=== PATIENT | female | born 2000 | race Caucasian/White ===

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

== ENCOUNTER 2019-03-22 12:22 | Emergency (ER) | payer MEDICAID, OTHER ==
[2019-03-22 12:59] VITALS: BP 108/61
--- NOTE | 2019-03-22 13:43 | UC ---
Back Pain HPI - HPI Summary HPI Summary: Pt presents with c/o left low back and posterior leg pain that began ~ 1 week ago after lifting and pulling a pt at work. 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 - History of Current Complaint Chief Complaint: UCBackPain Stated Complaint: BACK INJURY (WC) Time Seen by Provider: 03/22/19 13:35 Hx Obtained From: Patient Hx Last Menstrual Period: 03/17/19 ?: No Onset/Duration: Gradual Onset, Lasting Days, Still Present, Worse Since - onset Timing: Constant, Lasting Days Severity Initially: Mild Severity Currently: Moderate Pain Intensity: 5 Back Pain: Is Discrete @ - left low back and radiates down posterior leg Character: Dull, Aching, Burning Aggravating Factor(s): Movement Alleviating Factor(s): Nothing Associated Signs And Symptoms: Positive: Negative - Risk Factors AAA Risk Factors: Negative TAD Risk Factors: Negative Cauda Equina Risk Factors: Negative Epidural Abscess Risk Factors: Negative - Allergies/Home Medications Allergies/Adverse Reactions: Allergies Allergy/AdvReac Type Severity Reaction Status Date / Time sulfamethoxazole Allergy Rash Verified 03/22/19 12:53 [From Bactrim] trimethoprim [From Bactrim] Allergy Rash Verified 03/22/19 12:53 Home Medications: Home Medications Norelgest/Ethinyl Estr 150/35 [Xulane 150/35 PATCH] 1 each TRANSDERM WEEKLY [History Confirmed 03/22/19] PMH/Surg Hx/FS Hx/Imm Hx Previously Healthy: Yes - Surgical History Surgical History: Yes Surgery Procedure, Year, and Place: TONSILLECTOMY - Family History Known Family History: Positive: None - Social History Occupation: Employed Full-time Lives: With Family Alcohol Use: None Substance Use Type: None Smoking Status (MU): Never Smoked Tobacco Have You Smoked in the Last Year: No Household Exposure Type: Cigarettes - Immunization History Most Recent Influenza Vaccination: Not the 2015/2015 Season Vaccination Up to Date: Yes Review of Systems All Other Systems Reviewed And Are Negative: Yes Constitutional: Positive: Negative Skin: Positive: Negative Eyes: Positive: Negative ENT: Positive: Negative Respiratory: Positive: Negative Cardiovascular: Positive: Negative Gastrointestinal: Positive: Negative Genitourinary: Positive: Negative Motor: Positive: Negative Neurovascular: Positive: Negative Musculoskeletal: Positive: Myalgia Neurological: Positive: Negative Psychological: Positive: Negative Is Patient Immunocompromised?: No Physical Exam Triage Information Reviewed: Yes Appearance: Well-Appearing Vital Signs: Initial Vital Signs Temp 97.8 F 03/22/19 12:55 Pulse 62 03/22/19 12:55 Resp 14 03/22/19 12:55 BP 108/61 03/22/19 12:55 Pulse Ox 100 03/22/19 12:55 Vital Signs Reviewed: Yes Eye Exam: Normal ENT: Positive: Hearing grossly normal Dental Exam: Normal Neck exam: Normal Respiratory: Positive: No respiratory distress Musculoskeletal Exam: Normal Musculoskeletal: Positive: Strength Intact, ROM Intact, Other: - c/o radiating pain/discomfort left leg Neurological Exam: Normal Psychological Exam: Normal Skin Exam: Normal Back Pain Course/Dx - Differential Dx/Diagnosis Differential Diagnosis/HQI/PQRI: Herniated Disc, Strain Provider Diagnosis: Sciatica Discharge - Sign-Out/Discharge Documenting (check all that apply): Patient Departure All imaging exams completed and their final reports reviewed: No Studies - Discharge Plan Condition: Stable Disposition: HOME Prescriptions: predniSONE TAB* [Deltasone 20 MG TAB*] 20 mg PO DAILY #4 tab Patient Education Materials: Sciatica (ED), Lower Back Exercises (ED) Referrals: Tierra Carter [Primary Care Provider] - If Needed - Billing Disposition and Condition Condition: STABLE Disposition: Home - Attestation Statements Provider Attestation: Pt not seen by me. I was available for consult. EVELYN
== END 2019-03-22 13:49 | disposition home or self-care (01) ==
LOC: UCCORT 12:22
DX: M54.42 Lumbago with sciatica, left side (principal); Z88.2 Allergy status to sulfonamides
CPT/HCPCS: 99212; G0463

== ENCOUNTER 2019-10-27 16:55 | Emergency (ER) | payer OTHER ==
[2019-10-27 18:20] VITALS: BP 111/63
--- NOTE | 2019-10-27 18:34 | UC ---
General HPI - HPI Summary HPI Summary: Pt presents with c/o tender lump in left breast that began ~ 2 days ago. Pt is 26 & 1/2 weeks and has been "leaking" breast milk since early . Pt applied a warm pack earlier to day and noted that tender lump dissipated, and discharge from nipple was dark brown/green. Pt states skin was warm to touch and mildly erythematous but has no since resolved. - History of Current Complaint Chief Complaint: UCGeneralIllness Stated Complaint: LT BREAST COMPLAINT Time Seen by Provider: 10/27/19 18:27 Hx Obtained From: Patient Hx Last Menstrual Period: 03/17/19 Onset/Duration: Gradual Onset, Lasting Days, Resolved Timing: Constant Onset Severity: Moderate Current Severity: Mild Pain Intensity: 0 - Allergy/Home Medications Allergies/Adverse Reactions: Allergies Allergy/AdvReac Type Severity Reaction Status Date / Time sulfamethoxazole Allergy Rash Verified 10/27/19 18:20 [From Bactrim] trimethoprim [From Bactrim] Allergy Rash Verified 10/27/19 18:20 Home Medications: Home Medications Iron 18 mg PO BID 10/27/19 [History Confirmed 10/27/19] PMH/Surg Hx/FS Hx/Imm Hx Previously Healthy: Yes - Surgical History Surgical History: Yes Surgery Procedure, Year, and Place: TONSILLECTOMY - Family History Known Family History: Positive: Cardiac Disease - Social History Occupation: Employed Full-time Lives: With Family Alcohol Use: None Substance Use Type: None Smoking Status (MU): Never Smoked Tobacco Have You Smoked in the Last Year: No Household Exposure Type: Cigarettes - Immunization History Most Recent Influenza Vaccination: Not the Season Vaccination Up to Date: Yes Review of Systems All Other Systems Reviewed And Are Negative: Yes Constitutional: Positive: Negative Skin: Positive: Other - tender mass, left breast Eyes: Positive: Negative ENT: Positive: Negative Respiratory: Positive: Negative Cardiovascular: Positive: Negative Gastrointestinal: Positive: Negative Genitourinary: Positive: Negative Motor: Positive: Negative Neurovascular: Positive: Negative Musculoskeletal: Positive: Negative Neurological/Mental Status: Positive: Negative Psychological: Positive: Negative Is Patient Immunocompromised?: No Physical Exam Triage Information Reviewed: Yes Appearance: Well-Appearing Vital Signs: Initial Vital Signs Temp 97.4 F 10/27/19 18:15 Pulse 76 10/27/19 18:15 Resp 18 10/27/19 18:15 BP 111/63 10/27/19 18:15 Pulse Ox 100 10/27/19 18:15 Vital Signs Reviewed: Yes Eye Exam: Normal ENT Exam: Normal ENT: Positive: Hearing grossly normal Dental Exam: Normal Neck exam: Normal Respiratory: Positive: No respiratory distress Musculoskeletal Exam: Normal Neurological Exam: Normal Psychological Exam: Normal Skin Exam: Other - left breast, tender mass at ~ 10 o'clock position measuring ~ 3 cm X 2 cm.. pt has small amount milky discharge from left nipple. Course/Dx - Differential Dx - Multi-Symptom Differential Diagnoses: Other - mastitis - Diagnoses Provider Diagnosis: Breast tenderness in female Discharge ED - Sign-Out/Discharge Documenting (check all that apply): Patient Departure All imaging exams completed and their final reports reviewed: No Studies - Discharge Plan Condition: Stable Disposition: HOME Patient Education Materials: and Plugged Ducts (ED) Referrals: Tierra Carter [Primary Care Provider] - If Needed Additional Instructions: Please follow up with our OB as soon as possible. - Billing Disposition and Condition Condition: STABLE Disposition: Home - Attestation Statements Provider Attestation: This patient was not seen by me. I was available for consult. Chart reviewed. EVELYN
== END 2019-10-27 18:41 | disposition home or self-care (01) ==
LOC: UCCORT 16:55
DX: O99.89 Other specified diseases and conditions complicating pregnancy, childbirth and the puerperium (principal); N63.20 Unspecified lump in the left breast, unspecified quadrant; N64.52 Nipple discharge; Z88.2 Allergy status to sulfonamides; Z3A.27 27 weeks gestation of pregnancy
CPT/HCPCS: 99211; G0463